=== PATIENT | female | born 2000 | race Caucasian/White ===

== ENCOUNTER 2023-03-27 09:19 | Outpatient (CLI) | payer BC, SELFPAY ==
--- NOTE | ~2023-03-27 | CT_ITS ---
EXAMINATION: CT sinus wo con DATE: 03/27/2023 09:39 INDICATION: Chronic ethmoid sinusitis TECHNIQUE: Computed tomography (CT) of the paranasal sinuses was performed without contrast. Iterativ e reconstruction technique was employed. Exam dose: 429.26 mGy-cm total exam DLP. COMPARISON: None FINDINGS: There is rightward bowing of the nasal septum. There is prominent soft tissue swelling of t he nasal turbinates bilaterally. There is prominent mucoperiosteal thickening of both maxillary sinuses, extensive patchy opacificatio n of the ethmoid air cells bilaterally in addition to mucoperiosteal thickening of both frontal sinus es, right greater than left and both sphenoid sinuses, right greater than left. There is opacification of the maxillary ostium and infundibulum bilaterally. The mastoid air cells are normally developed and aerated. IMPRESSION: Rightward bowing of nasal septum Prominent soft tissue swelling of the nasal turbinates Opacification of the maxillary ostium and ostiomeatal complex bilaterally Pansinusitis Reviewed, dictated and finalized at [facility]. Reviewed, dictated and finalized at [facility].
== END 2023-03-27 09:20 ==
LOC: GOSHIMG 09:21
PROVIDERS: PCP Otolaryngology; Visit Provider Otolaryngology
DX: J30.2 Other seasonal allergic rhinitis (principal); J32.2 Chronic ethmoidal sinusitis; R06.2 Wheezing; R43.8 Other disturbances of smell and taste
CPT/HCPCS: 70486